=== PATIENT | female | born 1945 ===

== ENCOUNTER 2020-02-27 07:18 | Inpatient (IN) | payer OTHER ==
[~2020-02-27] VITALS: Ht 165.1 cm; Wt 68.0 kg
[2020-03-09] MEDS ORDERED: METFORMIN HCL500 M3 PO (14:00)
[2020-03-09] MEDS ORDERED: ROSUVASTATIN CA10 MG PO (14:01)
[2020-03-09] MEDS ORDERED: ISOSORBIDE DINI30 MG PO (14:01)
[2020-03-09] MEDS ORDERED: IRBESARTAN150 MG PO (14:01)
[2020-03-09] MEDS ORDERED: TOPROL XL100 M1 PO (14:02)
[2020-03-09] MEDS ORDERED: PEPCID AC20 MG PO (14:02)
[2020-03-09] MEDS ORDERED: ASPIR 8181 MG PO (14:03)
[2020-03-09] MEDS ORDERED: BRILINTA60 MG PO (14:04)
[2020-03-15] MEDS ORDERED: ELIQUIS2.5 MG PO (13:17)
[2020-03-15] MEDS ORDERED: DUI500 PO (13:17)
[2020-03-15] MEDS ORDERED: PERCOCET 5-3251 EACH PO (13:17)
== END 2020-03-15 22:09 | DRG 470 ==
LOC: SURG 03-13 06:26 → O/R 03-13 06:26 → SURH 03-13 10:30 → O/R 03-13 10:30 → SURG 03-13 13:07 → SURH 03-13 13:15 → SURG 03-15 22:09
PROVIDERS: ADMIT Orthopaedic Surgery; ATTEND Orthopaedic Surgery
PROC: 0MNP0ZZ Release Left Knee Bursa and Ligament, Open Approach (ICD-10-PCS; 2020-03-13)
PROC: 0SRD0J9 Replacement of Left Knee Joint with Synthetic Substitute, Cemented, Open Approach (ICD-10-PCS; principal; 2020-03-13 13:15)
DX: M17.12 Unilateral primary osteoarthritis, left knee (principal); D62 Acute posthemorrhagic anemia; M22.12 Recurrent subluxation of patella, left knee; I10 Essential (primary) hypertension